=== PATIENT | male | born 1985 | race Two or more races ===

== ENCOUNTER 2025-03-07 10:07 | Emergency (ER) | payer BC, SELFPAY ==
[2025-03-07 10:10] VITALS: BP 137/90
[2025-03-07 10:33] LABS: % Basophils 0.7 % (0-2); % Eosinophils 6.7 % (0-6); % Immature Granulocytes 0.4 % (0-0.5); % Lymphocytes 30.8 % (20.5-51.1); % Monocytes 9.1 % (1.7-9.3); % Neutrophils 52.3 % (42.2-75.2); Absolute Basophils 0.1 10^3/uL (0-0.2); Absolute Eosinophils 0.5 10^3/uL (0-0.7); Absolute Lymphocytes 2.1 10^3/uL (1.2-3.4); Absolute Monocytes 0.6 10^3/uL (0.1-0.6); Absolute Neutrophils 3.6 10^3/uL (1.4-6.5); Hematocrit 46.1 % (39.0-52.0); Hemoglobin 15.6 g/dL (13.0-18.0); Mean Corp Hgb Conc. 33.8 g/dL (33.0-37.0); Mean Corpuscular Hgb 28.6 pg (27.0-31.0); Mean Corpuscular Volume 84.6 fL (80.0-94.0); Nucleated Red Blood Cells % 0 % (-); Platelet Count 206 10^3/uL (130-400); Red Blood Cell Count 5.45 10^6/uL (4.70-6.10); Red Cell Dist. Width 12.7 % (11.5-14.5); White Blood Cell Count 6.8 10^3/uL (4.8-10.8)
[2025-03-07 10:40] LABS: ALT (SGPT) 53 U/L (0-50); AST (SGOT) 26 U/L (17-59); Albumin 4.7 g/dl (3.5-5.0); Alkaline Phosphatase 39 U/L (38-126); Blood Urea Nitrogen 17 mg/dl (9-20); Calcium 10.6 mg/dl (8.4-10.2); Carbon Dioxide 29 mmol/L (22-30); Chloride 104 mmol/L (98-107); Glucose 100 mg/dl (70-99); Potassium 4.7 mmol/L (3.5-5.1); Sodium 142 mmol/L (135-145); Total Bilirubin 0.7 mg/dl (0.2-1.3); Total Protein 7.4 g/dl (6.3-8.2); eGFR > 60.00
[2025-03-07 10:52] LABS: Troponin I < 0.012 ng/ml
[2025-03-07 11:11] LABS: COVID-19 Antigen Negative (Negative)
[2025-03-07 12:16] LABS: Magnesium 1.8 mg/dl (1.6-2.3)
[2025-03-07] MEDS: DUONEB 3 ML INH (12:16)
[2025-03-07 12:27] VITALS: BP 114/75
[2025-03-07] MEDS: NSS 1000 IV (12:28)
--- NOTE | 2025-03-07 13:16 | ED.GENMED ---
History of Present Illness
General
Chief Complaint: Chest Pain
Time Seen by Provider: 03/07/25 11:44
History of Present Illness
History of Present Illness:
39-year-old male with no known past medical history presents the emergency department for evaluation of a myriad of complaints ongoing intermittently for the past several weeks. He reports chest pain that occurs randomly throughout the day for the
past 3 to 4 days. He also reports diffuse bodyaches for the past 2 weeks and exertional fatigue. Denies any shortness of breath. Reports dry coughing in the past 2 days as well. [place] dizzy this morning as well as numb on the left side of the
face and the left arm. Takes [id number] omeprazole on occasion but less than once weekly, no other [id number] meds or supplements.
Review of Systems
Review of Systems
Allergies reviewed?: Yes
All Other Systems: ROS reviewed and negative except as documented in HPI and ROS
Phy Exam
Physical Exam
Physical Exam:
GEN: Well appearing, NAD, WDWN
HEENT: Oral mucosa moist, no scleral icterus, no nasal congestion
Cardiac: Regular rate and rhythm, no murmur
Lung: No respiratory distress, no tachypnea, lungs clear to auscultation
MSK: No gross deformity or injuries
Skin: Good color, no pallor or jaundice, no rashes
Neuro: AO x3; CN II-XII grossly intact. BUE strength 5/5 in all kong, sensation intact and symmetric. BLE strength 5/5 in all kong, sensation intact and symmetric, normal gait without deficit
Psych: Calm, cooperative
Scores
Heart Score for Chest Pain Patients
STEMI patient?: No
History: Slightly or Non-Suspicious
ECG: Normal
Age: </= 45 years
Risk Factors: No Risk Factors
Troponin: </= Normal Limit
Heart Score for Chest Pain Patients: 0
Heart Score Risk: 2.5% MACE over next 6 weeks
Course
Orders/Labs/Results
Orders:
Orders
03/07/25 10:08
Electrocardiogram (*1) Urgent
Reason for Study: Chest Pain
EKG- Treatment ONCE
03/07/25 10:19
COVID-19 Antigen Urgent
Source: Nasal Swab
Complete Blood Count/With Diff Urgent
Influenza A+B Rapid Molecular Urgent
PIPPA Source: Nasal Swab
Specimen Description:
03/07/25 10:20
Comprehensive Metabolic Panel Urgent
Lyme Progressive Urgent
Comment: ADD ON
Magnesium Urgent
Comment: ADD ON
Troponin I Urgent
03/07/25 11:59
Add On- LAB Urgent
Tests Added?: magnesium
0.9% Sodium Chloride 1000 ml [Nss] 1,000 ml IV BOLUS
Ipratropium/Albuterol Sulfate [Duoneb] 3 ml INH R NOW STA
CR Chest - 2 Views Urgent
Comment:
Reason For Exam: chest pain, wheezing
03/07/25 13:18
Add On- LAB Urgent
Tests Added?: lyme progressive
Abnormal Lab Results
03/07/25 03/07/25
10:19 10:20
MPV 11.0 H fL
(7.4-10.4)
Eosinophils % 6.7 H %
(0-6)
Glucose 100 H mg/dl
(70-99)
Calcium 10.6 H mg/dl
(8.4-10.2)
ALT 53 H U/L
(0-50)
03/07/25 10:19
03/07/25 10:20
Vital Signs
Initial and Last Documented VS:
Initial Vital Signs
Temp Pulse Resp BP Pulse Ox
98.0 F 78 18 137/90 99
03/07/25 10:10 03/07/25 10:10 03/07/25 10:10 03/07/25 10:10 03/07/25 10:10
Last Documented Vital Signs
Temp Pulse Resp BP Pulse Ox
98.0 F 78 18 114/75 99
03/07/25 10:10 03/07/25 10:10 03/07/25 10:10 03/07/25 12:27 03/07/25 12:30
MDM/Problems Addressed
MDM/Problems Addressed:
Etiology is not immediately clear. He has no focal neurologic deficits. His paresthesias may be on the basis of mild hypercalcemia, cause of this remains uncertain. He certainly does use PPIs however it does not sound as though he uses them
frequently enough to explain the hypercalcemia. He has no objective neurologic deficits and given his young age and lack of risk factors I have a low suspicion for acute CVA. Recommend primary care follow-up for ongoing workup
*Critical Care Note
Total Time (30-74mins, 75-104mins- exclusive of procedures): Not Applicable
ED Attending Note
-
Portions of this chart may have been created with voice recognition software.� Occasional wrong word or��sound alike� substitutions may have occurred due to the inherent limitations of voice recognition software.
Discharge Plan
Departure
Patient Disposition: Home (Routine Discharge)
Date of Disposition: 03/07/25
Time of Disposition: 13:18
Patient with high blood pressure during this ER visit?: No
Discharge Problem:
Paresthesia, Myalgia
Instructions: Fatigue (DC)
Referrals:
Hever Fernandes MD [Family Provider] -
Activity Restrictions/Additional Instructions:
See your primary care physician next week to follow-up on your labs
Interventions
Interventions:
*Risk Screen - Suicide Last Done: 03/07/25 13:35
*General Assessment Last Done: 03/07/25 10:12
*Neglect/Abuse Screening Last Done: 03/07/25 13:35
*ED- Fall Risk Assessment Last Done: 03/07/25 13:35
*ED COVID-19 Vaccine History Last Done: 03/07/25 13:35
*Nursing Disposition Last Done: 03/07/25 13:35
ED- Cardiac Assessment Last Done: 03/07/25 13:23
Discharge Date and Time
Discharge Date/Time: 03/07/25 13:36
Print Language: [id number]
== END 2025-03-07 13:36 | disposition home or self-care (01) ==
LOC: EMR 10:07
PROVIDERS: EMERGENCY PHYSICIAN Emergency Medicine; FAMILY PHYSICIAN Hospitalist
DX: R20.2 Paresthesia of skin (principal); M79.18 Myalgia, other site; E83.52 Hypercalcemia; R05.9 Cough, unspecified; R42 Dizziness and giddiness; Z11.52 Encounter for screening for COVID-19
CPT/HCPCS: 94640; 96360; 99285; 71046; 80053; 83735; 84484; 85025; 86618; 87502; 87811; 93005